=== PATIENT | male | born 1970 | race Two or more races ===

== ENCOUNTER 2017-11-06 08:47 | Emergency (ER) | payer BC, MEDICAID ==
[~2017-11-06] VITALS: Ht 182.9 cm; Wt 87.1 kg
[2017-11-06 09:10] VITALS: BP 143/98
[2017-11-06] MEDS ORDERED: traMADol HCL 50 MG TAB PO ONE (10:15)
== END 2017-11-06 10:25 | disposition home or self-care (01) ==
LOC: ER 08:47
DX: S92.511A Displaced fracture of proximal phalanx of right lesser toe(s), initial encounter for closed fracture (principal); W01.0XXA Fall on same level from slipping, tripping and stumbling without subsequent striking against object, initial encounter; Y93.89 Activity, other specified; Y99.8 Other external cause status; Y92.89 Other specified places as the place of occurrence of the external cause
CPT/HCPCS: 73630